=== PATIENT | male | born 1965 | race Hispanic/Latino ===

== ENCOUNTER 2017-03-27 19:43 | Emergency (ER) | payer SELFPAY ==
[~2017-03-27] VITALS: Ht 172.7 cm; Wt 80.4 kg
[~2017-03-27 19:43] MED LIST: CHOLESTEROL MED; HYPERTENSION MED; METFORMIN500 MG PO; ULTRAM50 M1 PO
[2017-03-27] MEDS ORDERED: GLIPIZIDE5 M2 PO (21:56)
[2017-03-27] MEDS ORDERED: GLUCOTROL10 MG PO (21:56)
[2017-03-27] MEDS ORDERED: AUGMENTIN875TAB PO (22:38)
[2017-03-27 22:56] VITALS: BP 164/88
== END 2017-03-27 22:45 | disposition home or self-care (01) | DRG 159 ==
LOC: ED 19:43
DX: K08.89 Other specified disorders of teeth and supporting structures (principal); R22.0 Localized swelling, mass and lump, head

== ENCOUNTER 2023-12-30 11:46 | Emergency (ER) | payer OTHER ==
[~2023-12-30] VITALS: Ht 172.7 cm; Wt 81.6 kg
[2023-12-30] VITALS (13 sets, daily range): BP systolic 122–174; BP diastolic 59–70
[~2023-12-30 11:46] MED LIST changes: +AUGMENTIN875TAB PO; +GLIPIZIDE5 M2 PO; +GLUCOTROL10 MG PO
[2023-12-30] MEDS ORDERED: ONDANSETRON 4 MG/TAB ODT PO ONE (13:05)
[2023-12-30] MEDS ORDERED: MORPHINE SULFATE 4 MG/ML VIAL IM ONE (13:05)
[2023-12-30] MEDS ORDERED: HYDROCO/APAP1 TA9 PO (14:52)
[2023-12-30] MEDS ORDERED: TANLOR1000 MG PO (15:00)
== END 2023-12-30 15:15 | disposition home or self-care (01) | DRG 561 ==
LOC: ED 11:46
DX: S22.42XD Multiple fractures of ribs, left side, subsequent encounter for fracture with routine healing (principal); I10 Essential (primary) hypertension; E11.9 Type 2 diabetes mellitus without complications; W19.XXXD Unspecified fall, subsequent encounter; Z79.84 Long term (current) use of oral hypoglycemic drugs